=== PATIENT | female | born 1970 | race Caucasian/White ===

== ENCOUNTER 2024-07-25 06:45 | Day surgery (SDC) | payer BC ==
[~2024-07-25 06:45] MED LIST: Bupivacaine 0.5% 30 ML SDV ONE; Sodium Chloride 0.9% 10 ML Syringe FLUSH PRN; Sodium Chloride 0.9% 10 ML Syringe FLUSH SCH
[2024-07-25] MEDS: Lactated Ringers 1,000 ML IV SCH (06:45)
[2024-07-25] MEDS ORDERED: Acetaminophen 325 MG Tab PO ONE (06:53)
[2024-07-25] MEDS ORDERED: propofoL 500 MG/50 ML 100 ML ONE (07:03)
[2024-07-25] MEDS ORDERED: Midazolam 1 MG/ML 2 ML SDV ONE (07:03)
[2024-07-25] MEDS ORDERED: fentaNYL 250 MCG/5 ML SDV ONE (07:03)
[2024-07-25] MEDS ORDERED: Rocuronium 50 MG/5 ML Vial ONE (07:07)
[2024-07-25] MEDS ORDERED: Ondansetron 4 MG/2 ML SDV ONE (07:07)
[2024-07-25] MEDS ORDERED: Lidocaine 1% 5 ML VIAL ONE (07:07)
[2024-07-25] MEDS ORDERED: Dexamethasone 4 MG/ML 5 ML MDV ONE ×2 (07:07→08:13)
[2024-07-25] MEDS ORDERED: dexmedeTOMIDine HCl 200 MCG/2 ML SDV ONE (07:07)
[2024-07-25 07:16] LABS: APPEARANCE,URINE CLEAR (Clear); BILIRUBIN,URINE NEGATIVE (Negative); COLOR,URINE YELLOW (Yellow); GLUCOSE,URINE NEGATIVE (Negative); KETONES,URINE NEGATIVE (Negative); LEUKOCYTE ESTERASE,URINE TRACE (Negative); NITRITE,URINE NEGATIVE (Negative); OCCULT BLOOD,URINE NEGATIVE (Negative); PROTEIN,URINE NEGATIVE (Negative); UROBILINOGEN,URINE 0.2 (0.2-1.0)
[2024-07-25 07:24] LABS: BACTERIA,URINE FEW /hpf (FEW); MUCUS,URINE FEW /hpf (FEW); RBC,URINE 0-5 /hpf (0-5)
[2024-07-25] MEDS ORDERED: ceFAZolin 2 GM Vial ONE (07:44)
[2024-07-25] MEDS ORDERED: ePHEDrine 50 MG/ML SDV ONE (07:48)
[2024-07-25] MEDS ORDERED: HYDROmorphone 0.5 MG/0.5 ML Syringe ONE ×2 (08:09→08:19)
[2024-07-25] MEDS: Bupivacaine 0.25% 10 ML SDV ONE (08:09)
[2024-07-25] MEDS: EPINEPHrine 1 MG/ML SDV ONE (08:09)
[2024-07-25] MEDS: Bupivacaine 0.5% 30 ML SDV ONE (08:09)
[2024-07-25] MEDS ORDERED: Lactated Ringers 1,000 ML ONE (08:23)
[2024-07-25] MEDS ORDERED: Bupivacaine 0.25% 10 ML SDV ONE (08:24)
[2024-07-25] MEDS ORDERED: Propofol 200 MG/20 ML SDV ONE (08:47)
[2024-07-25] MEDS ORDERED: Ketorolac 30 MG/ML SDV ONE (09:06)
[2024-07-25] MEDS ORDERED: Sugammadex Sodium 200 MG/2 ML VIAL IV ONE (09:06)
[2024-07-25] MEDS ORDERED: fentaNYL 100 MCG/2 ML SDV IVPUSH PRN (09:38)
[2024-07-25] MEDS ORDERED: Ondansetron 4 MG/2 ML SDV IVPUSH PRN (09:38)
[2024-07-25] MEDS ORDERED: HYDROmorphone 0.5 MG/0.5 ML Syringe IVPUSH PRN (09:38)
[2024-07-25] MEDS ORDERED: Lidocaine 2% 11 ML Jelly Filled Syringe ONE (10:04)
[2024-07-25] MEDS ORDERED: oxyCODONE 5 MG Tab PO PRN (10:59)
== END 2024-07-25 13:05 | disposition home or self-care (01) ==
LOC: JD.SDS 06:45
PROVIDERS: ATTEND Obstetrics & Gynecology
DX: D25.9 Leiomyoma of uterus, unspecified (principal); N81.10 Cystocele, unspecified; N39.3 Stress incontinence (female) (male); E03.9 Hypothyroidism, unspecified; E78.00 Pure hypercholesterolemia, unspecified; Z79.890 Hormone replacement therapy; Z79.899 Other long term (current) drug therapy
CPT/HCPCS: 36415; 57240; 57288; 58552; 81001; 81025; 86850; 86900; 86901; 87086; A9270; C1771; J0171; J0665; J0690; J1100; J1596; J1885; J2003; J2250; J2405; J2704; J3010; J7120; 00944; J3490